=== PATIENT | female | born 1950 | race Caucasian/White ===

== ENCOUNTER 2017-05-22 11:52 | Emergency (ER) | payer OTHER ==
[2017-05-22 12:56] LABS: ABS Basophils 0.1 10^3/ul (0-0.2); ABS Eosinophils 0.2 10^3/ul (0-0.6); ABS Lymphocytes 2.6 10^3/ul (1.0-4.8); ABS Monocytes 0.7 10^3/ul (0-0.8); ABS Neutrophils 3.6 10^3/ul (1.5-7.7); ABS Nucleated RBC 0 10^3/ul; Eosinophil % 3.3 % (0-6); Hematocrit 42 % (35-47); Hemoglobin 13.8 g/dl (12.0-16.0); Lymphocyte % 36.5 % (25-47); Mean Corpuscular HGB Conc 33 g/dl (31-36); Mean Corpuscular Hemoglobin 29 pg (27-31); Mean Corpuscular Volume 87 fL (80-97); Mean Platelet Volume 8 um3 (7.4-10.4); Nucleated Red Blood Cells % 0.1; Platelet Count 217 10^3/ul (150-450); Red Blood Count 4.81 10^6/ul (4.0-5.4); Red Cell Distribution Width 14 % (10.5-15); White Blood Count 7.1 10^3/ul (3.5-10.8)
[2017-05-22 13:21] LABS: EGFR Non-African American 75.9 (>60)
[2017-05-22] MEDS ORDERED: Ketorolac INJ* 30 MG/ML 1 ML VIAL IV PUSH ONE (13:34)
--- NOTE | 2017-05-22 13:36 | RAD ---
Indication: Chest pain and shortness of breath. 2 views of the chest including dual energy PA views demonstrate no mediastinal shift. Heart is of normal size and configuration. Lung yen demonstrate no pleural fluid, pneumonia or pneumothorax. IMPRESSION: No active cardiopulmonary disease is noted.
[2017-05-22 17:13] VITALS: BP 132/64
[2017-05-22 17:20] LABS: Urine Appearance Clear; Urine Blood Negative (Negative); Urine Color Straw; Urine Ketones Negative (Negative); Urine Protein Negative (Negative); Urine Specific Gravity 1.006 (1.010-1.030); Urine Urobilinogen Negative (Negative)
--- NOTE | 2017-05-23 08:24 | ED ---
Harshal Grant Angela, scribed for Patrick Eisenberg MD on 05/22/17 at 1206 . HPI Chest Pain - HPI Summary HPI Summary: This pt is a 66 y/[facility]2 days. Pt is [place] Citizen speaking and her daughter is providing the history and translating. Pt recently flew back from [place] 2 days ago. Pt had one layover and daughter states one of the flights was approximately 20 hours. Pt reports chest pain, SOB , and LE edema. Her pain is described as sharp. Daughter notes the pt also states she has a pleuritic chest pain, worse with deep breaths. Pt has had intermittent chest pain within the past 2 months but they have not been this painful. PMHx includes HTN and sleep apnea. Pt reports that for the last 2 days pt did not wear her sleep apnea machine due to traveling. - History of Current Complaint Chief Complaint: EDChestPainROMI Time Seen by Provider: 05/22/17 12:00 Hx Obtained From: Patient Onset/Duration: Started Days Ago - 2, Still Present Timing: Lasting Days - 2 Current Severity: Moderate Pain Intensity: 5 Pain Scale Used: 0-10 Numeric Chest Pain Location: Diffuse Chest Pain Radiates: No Character: Sharp/Stabbing - sharp Aggravating Factor(s): Deep Breaths Alleviating Factor(s): Nothing Associated Signs and Symptoms: Positive: Chest Pain, Shortness of Breath, Edema - in LE - Allergy/Home Medications Allergies/Adverse Reactions: Allergies Allergy/AdvReac Type Severity Reaction Status Date / Time BANDAIDES TAPE Allergy Blisters Uncoded 11/01/15 10:52 Home Medications: Home Medications Atorvastatin* [Lipitor*] 10 mg PO DAILY 05/22/17 [History Confirmed 05/22/17] amLODIPine TAB* [Norvasc 5 mg TAB*] 5 mg PO DAILY 05/22/17 [History Confirmed ] PMH/Surg Hx/FS Hx/Imm Hx Cardiovascular History: Reports: Hx Hypertension - DAILY MEDS Respiratory History: Reports: Hx Sleep Apnea GI History: Reports: Hx Gastroesophageal Reflux Disease - ON DAILY MEDS History: Reports: Hx Kidney Stones - Hx OF, 02/2015 & CURRENT-SURGERY 2015 Sensory History: Reports: Hx Contacts or Glasses - GLASSES Opthamlomology History: Reports: Hx Contacts or Glasses - GLASSES - Surgical History Surgery Procedure, Year, and Place: 02/2015 & 10/24/15 LEFT KIDNEY STONE [place]. 2007 HYSTERECTOMY [place]. 2009 GALLBLADDER [place] Hx Anesthesia Reactions: Yes - HAS SLEEP APNEA, HAS DIFFICULTY WITH ANESTHESIA Infectious Disease History: No Infectious Disease History: Denies: Traveled Outside the [place] in Last 30 Days - Family History Known Family History: Negative: Cardiac Disease, Hypertension, Diabetes - Social History Alcohol Use: Rare Alcohol Amount: ONLY [place] Substance Use Type: Reports: None Smoking Status (MU): Never Smoked Tobacco Have You Smoked in the Last Year: No Review of Systems Negative: Fever, Chills Positive: Chest Pain Positive: Shortness Of Breath Positive: Edema - in LE All Other Systems Reviewed And Are Negative: Yes Physical Exam - Summary Physical Exam Summary: VITAL SIGNS: Reviewed. GENERAL: Patient is a well-developed and nourished female who is lying comfortable in the stretcher. Patient is not in any acute respiratory distress. HEAD AND FACE: No signs of trauma. No ecchymosis, hematomas or skull depressions. No sinus tenderness. EYES: PERRLA, EOMI x 2, No injected conjunctiva, no nystagmus. EARS: Hearing grossly intact. Ear canals and tympanic membranes are within normal limits. MOUTH: Oropharynx within normal limits. NECK: Supple, trachea is midline, no adenopathy, no JVD, no carotid bruit, no c- spine tenderness, neck with full ROM. CHEST: Symmetric, no tenderness at palpation LUNGS: Clear to auscultation bilaterally. No wheezing or crackles. CVS: Regular rate and rhythm, S1 and S2 present, no murmurs or gallops appreciated. ABDOMEN: Soft, non-tender. No signs of distention. No rebound no guarding, and no masses palpated. Bowel sounds are normal. EXTREMITIES: FROM in all major joints, no edema, no cyanosis or clubbing. NEURO: Alert and oriented x 3. No acute neurological deficits. Speech is normal and follows commands. SKIN: Dry and warm Triage Information Reviewed: Yes Vital Signs On Initial Exam: Initial Vitals Temp Pulse Resp BP Pulse Ox 97.7 F 72 20 144/79 98 05/22/17 11:54 05/22/17 11:54 05/22/17 11:54 05/22/17 11:54 05/22/17 11:54 Vital Signs Reviewed: Yes Diagnostics - Vital Signs Vital Signs Temp Pulse Resp BP Pulse Ox 05/22/17 11:54 97.7 F 72 20 144/79 98 - Laboratory Result Diagrams: 05/22/17 12:40 05/22/17 12:40 Lab Statement: Any lab studies that have been ordered have been reviewed, and results considered in the medical decision making process. - Radiology Chest XR Xray Interpretation: No Acute Changes - IMPRESSION: No active cardiopulmonary disease is noted. Dr. Eisenberg has reviewed this radiology report. Radiology Interpretation Completed By: Radiologist - EKG 11:57 Cardiac Rate: NL EKG Rhythm: Sinus Rhythm - at 73 bpm EKG Interpretation: No ST elevation. Re-Evaluation - Re-Evaluation First Eval Re-Evaluation Time: 15:46 Comment: I reviewed the lab and XR results with the pt. Chest Pain Course/Dx - Course Assessment/Plan: This pt is a 66 y/o female presenting to [facility] c/o chest pain x2 days. Pt is [place] Citizen speaking and her daughter is providing the history and translating. Pt recently flew back from [place] 2 days ago. Pt had one layover and daughter states one of the flights was approximately 20 hours. Pt reports chest pain, SOB, and LE edema. Her pain is described as sharp. Daughter notes the pt also states she has a pleuritic chest pain, worse with deep breaths. Pt has had intermittent chest pain within the past 2 months but they have not been this painful. PMHx includes HTN and sleep apnea. Pt reports that for the last 2 days pt did not wear her sleep apnea machine due to traveling. Test results without any significant abnormalities. Since the pt is not hypoxic, not tachycardic, and the D-dimer is negative, I have low suspicion for DVT or PE. Two troponins, 4 hours apart, are both negative. She was given a shot for Toradol and her symptoms subsided. Therefore the pt will be discharged to home with follow up from PCP. She is instructed to return to the ED for any worsening symptoms. Pt is hemodynamically stable, alert and oriented x3. - Diagnoses Provider Diagnoses: Atypical chest pain Discharge - Discharge Plan Condition: Stable Disposition: HOME Patient Education Materials: Chest Pain (ED) Referrals: Regine Garza MD [Primary Care Provider] - 3 Days Additional Instructions: Please follow up with your primary care provider. RETURN TO THE ED FOR ANY WORSENING SYMPTOMS. The documentation as recorded by the Harshal olmos Angela accurately reflects the service I personally performed and the decisions made by me, Patrick Eisenberg MD.
== END 2017-05-22 17:14 | disposition home or self-care (01) ==
LOC: ED 11:52
DX: R07.89 Other chest pain (principal); R06.02 Shortness of breath; Z86.79 Personal history of other diseases of the circulatory system
CPT/HCPCS: 36415; 71046; 80053; 81003; 82550; 82553; 83605; 83880; 84484; 85025; 85379; 86140; 87040; 93005; 99283; J1885